=== PATIENT | male | born 1945 | race Caucasian/White ===

== ENCOUNTER 2019-10-26 18:30 | Emergency (ER) | payer MEDICARE, BC, SELFPAY ==
[2019-10-26 18:34] VITALS: BP 177/86; PULSE 84; RESP 20; TEMP 36.1; O2SAT 98
--- NOTE | 2019-10-26 19:42 | DI.US.S_ITS ---
PROCEDURE: US PERIPH VENOUS LOW EXTREM RT INDICATIONS: PAIN, SWELLING, STATUS POST INJURY TECHNIQUE: Real-time imaging, as well as color and pulse Doppler interrogation, were performed of the lower extremity deep veins from the inguinal ligament to the popliteal fossa. COMPARISON: None. FINDINGS: The common femoral, femoral and popliteal veins are normally compressible, and free of intraluminal thrombus. Color and pulse Doppler demonstrate normal phasic intraluminal flow. There is normal augmentation response to distal compression maneuver. There is small nonocclusive thrombus present below the popliteal vein in upper calf veins. There is a punctate fluid collection corresponding to an area of lump anterior lower leg below the patella, likely representing resolving hematoma, measuring 7.9 x 2.5 x 5.0 cm. IMPRESSION: 1. Small nonocclusive clot in calf veins. No DVT from the popliteal vein to the inguinal ligament. 2. Probable resolving hematoma corresponding to the area of lump in the anterior lower leg. Dictated by: Kem Ulrich M.D. on 10/26/2019 at 21:36 Approved by: Kem Ulrich M.D. on 10/26/2019 at 21:39
[2019-10-26 20:01] LABS: Add Manual Diff / Slide Review NO; Basophils Absolute Auto 100 /uL (0-100); Basophils Percent Auto 1.2 % (0-2); Eosinophils Absolute Auto 300 /uL (0-450); Eosinophils Percent Auto 3.5 % (2-4); Hematocrit 44.1 % (41-53); Hemoglobin 14.9 g/dL (13.5-17.5); Lymphocytes Absolute Auto 2600 /uL (1100-4500); Lymphocytes Percent Auto 30.3 % (25-40); Mean Corpuscular HGB Conc 33.9 % (30-36); Mean Corpuscular Hemoglobin 29.4 PG (26-34); Monocytes Absolute Auto 600 /uL (0-900); Monocytes Percent Auto 6.6 % (3-14); Neutrophils Absolute Auto 5100 /uL (1500-7000); Neutrophils Percent Auto 58.4 % (50-75); Platelet Count 274 X10^3/uL (150-400); Red Blood Cell Count 5.07 X10^6/uL (4.5-5.9); Red Cell Distribution Width 14.6 % (11.6-14.8); White Blood Cell Count 8.7 X10^3/uL (4.5-11.0)
[2019-10-26 20:03] LABS: INR 1.1 (0.9-1.3); Prothrombin Time 12.3 SECONDS (10.1-12.7)
[2019-10-26 20:12] LABS: BUN Creatinine Ratio 14.4 (6-22); Blood Urea Nitrogen 13 mg/dL (9-20); Calcium 10.2 mg/dL (8.4-10.2); Carbon Dioxide 26 mmol/L (22-32); Chloride 101 mmol/L (98-107); Estimated Glomerular Filt Rate > 60.0 mL/min (>60); Glucose 100 mg/dL (80-110); HEMOLYSIS 36 (0-50); Potassium 3.6 mmol/L (3.4-5.1); Sodium 138 mmol/L (137-145)
[2019-10-26 22:37] VITALS: BP 137/64; PULSE 72; TEMP 36.7; O2SAT 99
--- NOTE | 2019-10-27 02:36 | ED.LOWEXIN ---
HPI - Extremity Injury (Lower) General Chief Complaint: Extremity Injury, Lower Stated Complaint: Thinks blood clot lower right leg Time Seen by Provider: 10/26/19 19:25 Source: patient Mode of arrival: Ambulatory Limitations: no limitations History of Present Illness HPI Narrative: 74-year-old male nonsmoker with history of obesity and prior blood clot presents with his daughter and a chief complaint of pain and swelling. He states about 11 days ago he injured his right medial knee by running into a hard object. He immediately had fair amount of swelling on the medial aspect of his knee and developed some bruising and swelling below this point. He states that he has had episodes of swelling in his right calf on and off ever since he had a DVT many years ago. He no longer takes anticoagulation. He denies numbness, tingling or weakness. He denies any significant redness, warmth nor systemic findings of infection such as fever, chills nor nausea or vomiting. His primary care provider sent him here for a DVT evaluation complaint: knee injury Onset (ago): day(s) Injury: Right: knee Type of Injury: blunt Place: home Severity: moderate Relieving factors: rest Exacerbating factors: movement Context: direct blow Associated symptoms: swelling Other symptoms: none Treatments prior to arrival: cold therapy and other Related Data Allergies Allergy/AdvReac Type Severity Reaction Status Date / Time No Known Drug Allergies Allergy Verified 10/26/19 18:40 Review of Systems Constitutional Constitutional: Denies chills, Denies fatigue, Denies fever(s), Denies frequent falls, Denies lethargy and Denies weakness Eyes Eyes: Denies change in vision, Denies eye discharge, Denies irritation and Denies loss of vision ENT Ears, Nose, Mouth, and Throat: Denies change in voice, Denies dizziness, Denies neck pain, Denies sore throat and Denies throat swelling Cardiovascular Cardiovascular: Denies chest pain, Denies irregular heart rhythm, Denies lightheadedness, Denies palpitations, Denies dyspnea, Denies dyspnea on exertion and Denies orthopnea Respiratory Respiratory: Denies cough, Denies dyspnea, Denies dyspnea on exertion and Denies wheezing Gastrointestinal Gastrointestinal: Denies abdominal pain, Denies change in bowel habits, Denies diarrhea, Denies nausea and Denies vomiting Genitourinary Genitourinary: Denies hematuria, Denies flank pain, Denies urinary incontinence and Denies urinary urgency Musculoskeletal Musculoskeletal: Denies back pain, Reports limited range of motion, Denies muscle weakness, Denies neck pain, Denies numbness, Reports radiating pain into limb and Denies tingling Integumentary/Breasts Skin/Breast: Denies pruritus, Denies erythema, Denies rash and Denies wounds Neurologic Neurologic: Denies behavioral changes, Denies confusion, Denies dizziness, Denies frequent falls, Denies loss of vision, Denies numbness, Denies tingling and Denies weakness Psychiatric Psychiatric: Denies anxiety, Denies behavioral changes, Denies confusion, Denies depression, Denies homicidal ideation and Denies suicidal ideation Endocrine Endocrine: Denies fatigue, Denies flushing and Denies palpitations Hematologic/Lymphatic Hematologic/Lymphatic: Denies easy bruising Allergic/Immunologic Allergic/Immunologic: Denies urticaria, Denies throat swelling and Denies wheezing Patient History Social History Smoking Status: Never smoker Smoking Status: Never smoker Substance Use Type: does not use Exam Narrative Exam Narrative: GENERAL: [74] year old patient appears stated age. Well-nourished, well-developed patient, in mild distress. HEAD: Atraumatic. Normocephalic. EYES: Pupils equal round and reactive. Extraocular motions intact. No scleral icterus. No injection or drainage. ENT: Nose without bleeding, purulent drainage. Throat without erythema, tonsillar hypertrophy or exudate. Airway patent. NECK: Trachea midline. Non tender CARDIOVASCULAR: Regular rate and rhythm without murmurs, gallops, or rubs. RESPIRATORY: Clear to auscultation. Breath sounds equal bilaterally. No wheezes, rales, or rhonchi. GASTROINTESTINAL: Abdomen soft, non-tender, nondistended. EXTREMITIES: Full but painful ROM of Right knee. Bruising to medial knee with ecchymosis and swelling of most of RLE. No redness, warmth, or tenderness to palpation of calf of with flexion at ankle. Closed and N/V in tact. No change in sensation of toes, cap refill ,2 seconds BACK: Nontender without deformity or crepitance. No flank tenderness. NEURO: AOx3. SKIN: No rash or erythema of visible areas Initial Vital Signs Initial Vital Signs: Vital Signs Temperature 96.9 F L 10/26/19 18:34 Pulse Rate 84 10/26/19 18:34 Respiratory Rate 20 10/26/19 18:34 Blood Pressure 177/86 H 10/26/19 18:34 Pulse Oximetry 98 10/26/19 18:34 Course Orders Ordered: ED Orders 10/26/19 19:42 US periph venous low extrem rt Stat 10/26/19 19:48 Basic Metabolic Panel Stat Complete Blood Count AUTO DIFF Stat Prothrombin Time INR Stat Consultations Consultation #1: Given relatively small and nonocclusive DVT in RLQ below popliteal and relatively large hematoma I called oncology and we agree that anticoagulation is likely to be not needed, and perhaps detrimental at this time. Vital Signs Vital signs: Vital Signs - 8 hr 10/26/19 22:37 Temperature 98.1 F Pulse Rate 72 Blood Pressure [Right Wrist] 137/64 Pulse Oximetry 99 MDM - Extremity Injury (Lower) Lab Data Result diagrams: 10/26/19 19:48 10/26/19 19:48 Labs: Lab Results 10/26/19 10/26/19 10/26/19 Range/Units 19:48 19:48 19:48 WBC 8.7 (4.5-11.0) X10^3/uL RBC 5.07 (4.5-5.9) X10^6/uL Hgb 14.9 (13.5-17.5) g/dL Hct 44.1 (41-53) % MCV 87.0 (80-100) fL MCH 29.4 (26-34) PG MCHC 33.9 (30-36) % RDW 14.6 (11.6-14.8) % Plt Count 274 (150-400) X10^3/uL Neut % (Auto) 58.4 (50-75) % Lymph % (Auto) 30.3 (25-40) % Desha % (Auto) 6.6 (3-14) % Eos % (Auto) 3.5 (2-4) % Baso % (Auto) 1.2 (0-2) % Neut # (Auto) 5100 (3610-4873) /uL Lymph # (Auto) 2600 (5876-5743) /uL Desha # (Auto) 600 (0-900) /uL Eos # (Auto) 300 (0-450) /uL Baso # (Auto) 100 (0-100) /uL PT 12.3 (10.1-12.7) SECONDS INR 1.1 (0.9-1.3) Sodium 138 (137-145) mmol/L Potassium 3.6 (3.4-5.1) mmol/L Chloride 101 (98-107) mmol/L Carbon Dioxide 26 (22-32) mmol/L BUN 13 (9-20) mg/dL Creatinine 0.90 (0.66-1.25) mg/dL Estimated GFR > 60.0 (>60) mL/min BUN/Creatinine Ratio 14.4 (6-22) Glucose 100 (80-110) mg/dL Calcium 10.2 (8.4-10.2) mg/dL Imaging Data US - DVT: Radiologist's Impression: Indra Barfield M 1945 [address] [address] Ultrasound Report Signed Patient: Britany Barfield#: [id number] : 5Acct:[id number] Age/Sex: 74 / MDate of Service: 10/26/19 Loc: ED Accession Number: [id number] Procedure: US periph venous low extrem rt Ordering Provider: Benji Campoverde D.O. PROCEDURE: US PERIPH VENOUS LOW EXTREM RT INDICATIONS: PAIN, SWELLING, STATUS POST INJURY TECHNIQUE: Real-time imaging, as well as color and pulse Doppler interrogation, were performed of the lower extremity deep veins from the inguinal ligament to the popliteal fossa. COMPARISON: None. FINDINGS: The common femoral, femoral and popliteal veins are normally compressible, and free of intraluminal thrombus. Color and pulse Doppler demonstrate normal phasic intraluminal flow. There is normal augmentation response to distal compression maneuver. There is small nonocclusive thrombus present below the popliteal vein in upper calf veins. There is a punctate fluid collection corresponding to an area of lump anterior lower leg below the patella, likely representing resolving hematoma, measuring 7.9 x 2.5 x 5.0 cm. IMPRESSION: 1. Small nonocclusive clot in calf veins. No DVT from the popliteal vein to the inguinal ligament. 2. Probable resolving hematoma corresponding to the area of lump in the anterior lower leg. Dictated by: Kem Ulrich M.D. on 10/26/2019 at 21:36 Approved by: Kem Ulrich M.D. on 10/26/2019 at 21:39 Discharge Plan Departure Patient Disposition: Home Clinical Impression: Hematoma and contusion Discharge Date/Time: 10/26/19 22:50 Instructions: DI for Hematoma (Bruise) Activity Restrictions/Additional Instructions: *You have been diagnosed with [ contusion and hematoma with small non-occlusive DVT (below popliteal) ] *What to do: *Take medications as directed *Follow up with your primary care provider in 2-3 days, call for an appointment. Let them know you were seen in the Emergency Department and that we ask that you be seen in follow up *Return to ER if you should have any new, worsening or concerning symptoms, such as [fever >101F, worsening pain, redness, swelling, or other bothersome symptoms ]
== END 2019-10-26 22:50 | disposition home or self-care (01) ==
PROVIDERS: Emergency Provider Emergency Medicine
DX: S80.01XA Contusion of right knee, initial encounter (principal); R60.0 Localized edema; W22.8XXA Striking against or struck by other objects, initial encounter
CPT/HCPCS: 36415; 80048; 85025; 85610; 93971; 99284

== ENCOUNTER → 2021-05-13 13:13 | Outpatient (CLI) | payer MEDICARE, BC, SELFPAY ==
[2021-05-13 19:13] LABS: Alanine Aminotransferase 14 IU/L (<50); Albumin Globulin Ratio 1.4 (1.0-2.8); Alkaline Phosphatase 57 U/L (38-126); Aspartate Aminotransferase 19 IU/L (17-59); BUN Creatinine Ratio 15.4 (6-22); Bilirubin Total 0.4 mg/dL (0.2-1.3); Bilirubin Unconjugated 0.2 mg/dL (0.0-1.1); Blood Urea Nitrogen 12 mg/dL (9-20); Calcium 9.8 mg/dL (8.4-10.2); Carbon Dioxide 27 mmol/L (22-32); Chloride 103 mmol/L (98-107); Estimated Glomerular Filt Rate > 60.0 mL/min (>60); Globulin 2.8 g/dL (1.7-4.1); Glucose 106 mg/dL (80-110); HEMOLYSIS < 15 (0-50); Potassium 4.2 mmol/L (3.4-5.1); Sodium 139 mmol/L (137-145); Total Protein 6.8 g/dL (6.3-8.2)
== END ==
PROVIDERS: PCP Family Medicine; Visit Provider Family Medicine
DX: C61 Malignant neoplasm of prostate (principal); C78.00 Secondary malignant neoplasm of unspecified lung; I10 Essential (primary) hypertension; Z20.822 Contact with and (suspected) exposure to COVID-19
CPT/HCPCS: 80053; 80076; 86769

== ENCOUNTER 2024-11-24 19:42 | Emergency (ER) | payer MEDICARE, BC, SELFPAY ==
[2024-11-24 19:44] VITALS: BP 161/84; PULSE 100; RESP 18; TEMP 36.6; O2SAT 100; BMI 30.3
[2024-11-24 22:31] VITALS: BP 146/95; PULSE 90; O2SAT 98
--- NOTE | 2024-11-24 23:01 | ED.MALEGU ---
HPI - Male Genitourinary General Chief complaint: Urogenital-Male Stated complaint: sent by Yaakov bladder issue Time Seen by Provider: 11/24/24 20:12 Source: patient Mode of arrival: Ambulatory History of Present Illness HPI Narrative: 79-year-old male with history of prostate cancer on docetaxel presents by private vehicle from home for several hours of inability to urinate. Patient states that he received his 6th round of chemotherapy today and shortly after getting home he was unable to urinate. He continues to feel the urge to pee, but can not pass any urine. Denies hx of urinary retention previously Related Data Home Medications Medication Instructions Recorded Confirmed docetaxel 80 mg/4 mL (20 mg/mL) 75 mg IV Q3W 08/24/24 08/24/24 intravenous solution prednisone 5 mg tablet mg PO 08/24/24 08/24/24 Previous Rx's Medication Instructions Recorded metronidazole 1 % topical gel 1 applic topical DAILY #60 grams 12/18/22 candesartan 32 1 tab PO DAILY #90 tabs 08/23/24 mg-hydrochlorothiazide 25 mg tablet (Atacand HCT) tirzepatide (weight loss) 15 15 mg (0.5 mL) SUBCUT QWEEK #2 mL 09/13/24 mg/0.5 mL subcutaneous pen injector (Zepbound) amlodipine 10 mg tablet (Norvasc) 10 mg PO DAILY #90 tabs 10/03/24 zolpidem 10 mg tablet 10 mg PO BEDTIME PRN insomnia #60 10/09/24 tabs escitalopram oxalate 10 mg tablet 10 mg PO DAILY #90 tabs 11/07/24 (Lexapro) tamsulosin 0.4 mg capsule (Flomax) 0.4 mg PO DAILY #30 caps 11/24/24 Allergies Allergy/AdvReac Type Severity Reaction Status Date / Time No Known Drug Allergies Allergy Verified 08/24/24 16:20 Patient History Medical History History of blood clots (~2008) Rosacea (~1979) Acne (~1959) Fractures (~1961) Mumps (~1950) Measles (~1950) Chicken pox (~1949) Kidney stones (~2006) Prostate cancer metastatic to lung (~2019) Surgical History Anesthesia History of hernia repair (~2009) History of cholecystectomy (~2008) Social History Smoking Status: Never smoker Smoking Status: Never smoker Exam Initial Vital Signs Initial Vital Signs: Vital Signs Temperature 98 F 11/24/24 19:44 Pulse Rate 100 H 11/24/24 19:44 Respiratory Rate 18 11/24/24 19:44 Blood Pressure 161/84 H 11/24/24 19:44 Pulse Oximetry 100 11/24/24 19:44 Oxygen Delivery Method Room Air 11/24/24 19:44 Const: Awake, alert, no acute distress, appears chronically unwell Cardiac: regular rate, regular rhythm RESP: unlabored, clear bilaterally, no wheezing GI: Soft, nontender, nondistended Skin: Warm, Dry, intact Neuro: AO x3, CN II-XII grossly intact, moves all extremities Course Orders Ordered: Discontinued Medications Lidocaine HCl (Lidocaine 2% (Glydo) 6 Ml Gel) 6 ml TOP NOW ONE Stop: 11/24/24 22:45 Last Admin: 11/24/24 23:20 Dose: 6 ml Documented By: Tamsulosin HCl (Tamsulosin 0.4 Mg Capsule) 1.2 mg PO NOW ONE Stop: 11/24/24 23:43 Last Admin: 11/24/24 23:58 Dose: 1.2 mg Documented By: Vital Signs Vital signs: Vital Signs - 8 hr 11/24/24 22:31 11/24/24 22:31 11/25/24 00:14 Pulse Rate 90 94 H Respiratory Rate 18 Blood Pressure 146/95 H 117/74 Pulse Oximetry 98 96 Oxygen Delivery Method Room Air Room Air MDM - Male Genitourinary MDM Narrative Medical decision making narrative: Acute urinary retention. Mason placed by nursing staff with drainage of when L of clear yellow urine. Patient to be started on Flomax. He says that he has a urology oncologist that he follows for his prostate cancer at [facility], and he can call Wednesday morning for follow up. If patient was unable to follow up with his urologist a local referral has been provided. Patient requested Flomax to go home since his pharmacy would not be open this weekend. This was given to patient prior to discharge. Discharge Plan Departure Patient Disposition: Home Clinical Impression: Acute urinary retention Instructions: DI for Urinary Retention in Men Activity Restrictions/Additional Instructions: You were retaining approximately 1 L of urine. A Mason catheter has been placed to help you drain your bladder. This will need to stay in place until you follow up with either your urologist or your oncologist. Call them Wednesday morning for follow up appointment. If you are unable to reach your specialists a local urology referral number has been provided. Take Flomax daily. Continue all of your other medications as prescribed. Prescriptions: New tamsulosin [Flomax] 0.4 mg capsule 0.4 mg PO DAILY Qty: 30 0RF No Action metronidazole 1 % gel 1 applic topical DAILY Qty: 60 0RF candesartan-hydrochlorothiazid [Atacand HCT] 32-25 mg tablet 1 tab PO DAILY Qty: 90 0RF Zepbound 15 mg/0.5 mL pen injector 15 mg SUBCUT QWEEK Qty: 2 4RF amlodipine [Norvasc] 10 mg tablet 10 mg PO DAILY Qty: 90 0RF zolpidem 10 mg tablet 10 mg PO BEDTIME PRN (Reason: insomnia) Qty: 60 0RF escitalopram oxalate [Lexapro] 10 mg tablet 10 mg PO DAILY Qty: 90 1RF prednisone 5 mg tablet PO docetaxel 80 mg/4 mL (20 mg/mL) solution 75 mg IV Q3W Referrals: Goyo vIy MD [Primary Care Provider] - Stand Alone Forms: Patient Portal/API/Survey
[2024-11-24] MEDS: LIDOCAINE 2% (GLYDO) 6 ML GEL TOP (23:20)
[2024-11-24] MEDS: TAMSULOSIN 0.4 MG CAPSULE 1.2 MG PO (23:58)
[2024-11-25 00:14] VITALS: BP 117/74; PULSE 94; RESP 18; O2SAT 96
== END 2024-11-24 23:58 | disposition home or self-care (01) ==
PROVIDERS: Emergency Provider Emergency Medicine; PCP Family Medicine
DX: R33.9 Retention of urine, unspecified (principal); C61 Malignant neoplasm of prostate
CPT/HCPCS: 51702; 51798; 99283; 99284

== ENCOUNTER → 2025-02-27 14:31 | Outpatient (CLI) | payer MEDICARE, BC, SELFPAY ==
[2025-02-27 19:41] LABS: Add Manual Diff / Slide Review NO; Basophils Absolute Auto 0 /uL (0-100); Basophils Percent Auto 0.3 % (0-2); Eosinophils Absolute Auto 100 /uL (0-450); Eosinophils Percent Auto 2.1 % (2-4); Hematocrit 40.2 % (41-53); Hemoglobin 13.3 g/dL (13.5-17.5); Lymphocytes Absolute Auto 2200 /uL (1100-4500); Lymphocytes Percent Auto 36.7 % (25-40); Mean Corpuscular Hemoglobin 28.2 PG (26-34); Mean Corpuscular Volume 85.4 fL (80-100); Monocytes Absolute Auto 400 /uL (0-900); Monocytes Percent Auto 6.2 % (3-14); Neutrophils Absolute Auto 3300 /uL (1500-7000); Neutrophils Percent Auto 54.7 % (50-75); Platelet Count 250 X10^3/uL (150-400); Red Blood Cell Count 4.71 X10^6/uL (4.5-5.9); Red Cell Distribution Width 17.1 % (11.6-14.8); White Blood Cell Count 6.1 X10^3/uL (4.5-11.0)
[2025-02-27 19:59] LABS: Alanine Aminotransferase 19 IU/L (<50); Albumin 4.2 g/dL (3.5-5.0); Albumin Globulin Ratio 1.6 (1.0-2.8); Alkaline Phosphatase 55 U/L (38-126); Aspartate Aminotransferase 24 IU/L (17-59); Bilirubin Total 0.6 mg/dL (0.2-1.3); Blood Urea Nitrogen 15 mg/dL (9-20); Calcium 9.3 mg/dL (8.4-10.2); Carbon Dioxide 27 mmol/L (22-32); Chloride 104 mmol/L (98-107); Cholesterol 242 mg/dL (140-199); Estimated Glomerular Filt Rate > 60 mL/min (>60); Globulin 2.6 g/dL (1.7-4.1); Glucose 73 mg/dL (70-99); HDL Cholesterol 45 mg/dL (40-60); HEMOLYSIS < 15 (0-50); LDL Cholesterol Calculated 171 mg/dL (<100); Potassium 3.7 mmol/L (3.4-5.1); Sodium 139 mmol/L (137-145); Total Protein 6.8 g/dL (6.3-8.2); Triglycerides 132 mg/dL (35-150)
[2025-02-27 20:36] LABS: Prostate Specific Antigen 92.7 ng/mL (0.10-4.00)
== END ==
PROVIDERS: Physician Assistant; PCP Family Medicine; Visit Provider Family Medicine
DX: E78.2 Mixed hyperlipidemia (principal); N40.1 Benign prostatic hyperplasia with lower urinary tract symptoms; C61 Malignant neoplasm of prostate; C78.00 Secondary malignant neoplasm of unspecified lung; I10 Essential (primary) hypertension; C64.9 Malignant neoplasm of unspecified kidney, except renal pelvis; F51.01 Primary insomnia; F32.A Depression, unspecified; Z86.718 Personal history of other venous thrombosis and embolism
CPT/HCPCS: 80053; 80061; 84153; 85025

== ENCOUNTER → 2025-04-11 13:43 | Outpatient (CLI) | payer MEDICARE, BC, SELFPAY ==
[2025-04-11 19:52] LABS: Add Manual Diff / Slide Review NO; Basophils Absolute Auto 0 /uL (0-100); Basophils Percent Auto 0.6 % (0-2); Eosinophils Absolute Auto 200 /uL (0-450); Hematocrit 40.6 % (41-53); Hemoglobin 13.5 g/dL (13.5-17.5); Lymphocytes Absolute Auto 2400 /uL (1100-4500); Lymphocytes Percent Auto 38.8 % (25-40); Mean Corpuscular HGB Conc 33.3 % (30-36); Mean Corpuscular Hemoglobin 28.6 PG (26-34); Mean Corpuscular Volume 85.8 fL (80-100); Monocytes Absolute Auto 500 /uL (0-900); Monocytes Percent Auto 8.3 % (3-14); Neutrophils Absolute Auto 3000 /uL (1500-7000); Neutrophils Percent Auto 48.3 % (50-75); Platelet Count 227 X10^3/uL (150-400); Red Blood Cell Count 4.73 X10^6/uL (4.5-5.9); Red Cell Distribution Width 15.8 % (11.6-14.8); White Blood Cell Count 6.1 X10^3/uL (4.5-11.0)
[2025-04-11 20:32] LABS: Alanine Aminotransferase 17 IU/L (<50); Albumin 4.4 g/dL (3.5-5.0); Albumin Globulin Ratio 1.8 (1.0-2.8); Alkaline Phosphatase 61 U/L (38-126); Aspartate Aminotransferase 22 IU/L (17-59); Bilirubin Total 0.6 mg/dL (0.2-1.3); Blood Urea Nitrogen 15 mg/dL (9-20); Calcium 9.5 mg/dL (8.4-10.2); Carbon Dioxide 26 mmol/L (22-32); Chloride 101 mmol/L (98-107); Estimated Glomerular Filt Rate > 60 mL/min (>60); Globulin 2.5 g/dL (1.7-4.1); Glucose 94 mg/dL (70-99); HEMOLYSIS < 15 (0-50); Sodium 134 mmol/L (137-145); Total Protein 6.9 g/dL (6.3-8.2)
[2025-04-11 21:01] LABS: Prostate Specific Antigen 87.3 ng/mL (0.10-4.00)
== END ==
PROVIDERS: PCP Family Medicine
DX: C61 Malignant neoplasm of prostate (principal)
CPT/HCPCS: 80053; 84153; 85025

== ENCOUNTER → 2025-10-12 14:12 | Outpatient (CLI) | payer MEDICARE, BC, SELFPAY ==
[2025-10-12 18:53] LABS: Blood Urea Nitrogen 14 mg/dL (9-20); Calcium 9.2 mg/dL (8.4-10.2); Carbon Dioxide 25 mmol/L (22-32); Chloride 104 mmol/L (98-107); Estimated Glomerular Filt Rate > 60 mL/min (>60); Glucose 74 mg/dL (70-99); HEMOLYSIS < 15 (0-50); Potassium 3.6 mmol/L (3.4-5.1); Sodium 140 mmol/L (137-145)
[2025-10-12 19:25] LABS: Prostate Specific Antigen 35.0 ng/mL (0.10-4.00)
== END ==
PROVIDERS: PCP Family Medicine; Visit Provider Family Medicine
DX: E78.2 Mixed hyperlipidemia (principal); C61 Malignant neoplasm of prostate; I10 Essential (primary) hypertension; C78.00 Secondary malignant neoplasm of unspecified lung; Z86.718 Personal history of other venous thrombosis and embolism; Z68.31 Body mass index [BMI] 31.0-31.9, adult
CPT/HCPCS: 80048; 83721; 84153